=== PATIENT | male | born 1990 | race African-American/Black ===

== ENCOUNTER 2017-09-23 13:33 | Emergency (ER) | payer MEDICAID ==
[~2017-09-23] VITALS: Ht 180.3 cm; Wt 77.1 kg
[2017-09-23] MEDS ORDERED: PROMETHAZINE HCL 25 MG/ML 1ML IV ONE (14:00)
[2017-09-23] MEDS ORDERED: MORPHINE SULFATE 4 MG/ML SYR/VIAL IV ONE (14:00)
[2017-09-23] MEDS ORDERED: HYDROcodone-ACET 10/325MG TAB PO ONE (14:00)
[2017-09-23 14:20] VITALS: BP 136/71
== END 2017-09-23 15:30 | disposition home or self-care (01) ==
LOC: ER 13:33
DX: S43.101A Unspecified dislocation of right acromioclavicular joint, initial encounter (principal); V03.90XA Pedestrian on foot injured in collision with car, pick-up truck or van, unspecified whether traffic or nontraffic accident, initial encounter; Y93.01 Activity, walking, marching and hiking; Y99.8 Other external cause status; Y92.488 Other paved roadways as the place of occurrence of the external cause
CPT/HCPCS: 29105; 73020; 96374; 96375; 99284; J2270; J2550